=== PATIENT | female | born 1940 | race Caucasian/White ===

== ENCOUNTER → 2019-03-25 06:52 | Day surgery (SDC) | payer MEDICARE, BC ==
--- NOTE | 2019-03-23 18:03 | HP ---
HISTORY AND PHYSICAL: DATE OF ADMISSION/SURGERY: 03/25/19 DATE OF ENCOUNTER: 03/21/19 ATTENDING SURGEON: Dr. Heather Horton.* (DICTATED BY JUSTYN CESPEDES) PROCEDURE: Right knee arthroscopy, partial meniscectomy, possible chondroplasty , possible synovectomy, and plica excision. CHIEF COMPLAINT: Right knee pain. HISTORY OF PRESENT ILLNESS: Ms. Baer is a 79-year-old female with years of intermittent right knee pain. She reports that she intermittently has some mild pain in the right knee, but on 10/29/18 she had a fall and feels that she hyperextended or twisted her right knee. Since then she has had more acute, 6/ 10, sharp pain along the lateral joint line of her knee. Her pain is increased with feet bending, twisting, and pivoting. She has tried cortisone injection, physical therapy, antiinflammatories, and rest, without relief of pain. She feels locking and catching and feels like her knee sometimes gives out on her. At this point she has failed conservative treatment and would like to proceed with surgery. PAST MEDICAL HISTORY: Right hip fracture, hypertension, osteoarthritis, Crohn' s disease, and hypothyroidism. PAST SURGICAL HISTORY: Right hip replacement, tonsillectomy, appendectomy, hysterectomy, and cholecystectomy. MEDICATIONS: 1. Levothyroxine sodium 75 mcg 1 p.o. daily. 2. Premarin 0.625 mg 2 tablets daily on days 1 through 12 of new control pack. 3. Dicyclomine HCL 2.5 mg p.o. daily. 4. Lisinopril 10 mg 1 p.o. daily. 5. Multivitamin 1 p.o. daily. 6. Imodium A-D over the counter as needed. ALLERGIES: She has no known drug allergies. FAMILY HISTORY: Negative for DVT, PE, coronary artery disease, hypertension or cancer. SOCIAL HISTORY: She is a retired nurse executive. She lives at home with her spouse. She denies any tobacco or recreational drug use. She drinks about 7 alcoholic beverages per week. She is normally very active with aerobics, gardening, and walking. She is right hand dominant. REVIEW OF SYSTEMS: General: Negative for fevers, chills, night sweats, unexplained weight loss or gain. No known anesthesia problems. HEENT: Negative for headache, lightheadedness, syncopal episodes, visual changes. Integumentary: Negative for abrasions, lesions, open wounds. Cardiothoracic: Negative for hypertension, chest pain, palpitations, edema. Respiratory: Negative for shortness of breath with exertion, chronic cough, wheezing. GI: Positive for diarrhea, positive for Crohn's, negative for nausea, vomiting or GERD. : Negative for nocturia, urinary frequency, urgency, history of UTIs, kidney problems. Musculoskeletal: Positive for right knee pain. Negative for chronic or intermittent back pain or history of fractures. Neurologic: Positive for poor balance. Negative for paresthesias, numbness, history of seizure or stroke. Negative for anxiety or depression. Endocrine: Negative for diabetes. Positive for thyroid issues. Hematologic: Negative for easy bruising, anemia, bleeding disorders or history of DVT. ID: Negative for history of MRSA infection, hep C, and HIV. PHYSICAL EXAMINATION GENERAL: Well-developed, well-nourished 79-year-old female, in no acute distress, appropriate mood and affect. VITAL SIGNS: Height 65 inches, weight 136 pounds, pulse 88, BP 128/76. BMI 22.6. HEENT: Normocephalic and atraumatic. PERRLA. Extraocular movements intact. NECK: Supple. No palpable lymph nodes. Throat is clear. PULMONARY: Lungs are clear to auscultation bilaterally. No wheezes, rales or rhonchi. CARDIO: Regular rate and rhythm. S1 and S2 normal. No murmurs, rubs or gallops. No edema. ABDOMEN: Positive bowel wounds, soft, and nontender. MUSCULOSKELETAL: Right lower extremity: The patient's skin is intact. No palpable masses or lymph nodes. Moderate effusion about the knee with tenderness along the lateral joint line. Positive Apley's and Ajit's. A 10 -degree valgus deformity at the knee. She has 15 to 100 degrees of flexion because of pain and swelling. No varus or valgus instability. Distally no edema, varicosities or hyporeflexia. She has a 5/5 ankle dorsiflexion and plantar flexion strength. She has good sensation to light touch in all nerve distributions and a 2+ palpable PT pulse. NEUROLOGIC: A and O x3. Cranial nerves II through XII are intact. Sensation is intact to light touch. STUDIES: MRI from 02/04/19 shows a chondromalacia of patella and a lateral meniscus tear. IMPRESSION: Right knee lateral meniscus tear. PLAN: The patient is scheduled to undergo right knee arthroscopy with partial meniscectomy with Dr. Horton on 03/25/19. The procedure, as well as the risks and benefits were discussed with the patient by Dr. Horton and the patient agrees to proceed. She will return to the office in 10 to 14 days postop for followup and suture removal. A prescription for Percocet was e-scribed to the patient's pharmacy for postoperative pain management and I-STOP was performed today. JUSTYN CESPEDES [id number]/[facility] #: [id number] MTDMariah
[~2019-03-25 06:52] MED LIST: Acetaminophen TAB* 325 MG ONE; Acetaminophen TAB* 325 MG PO PRN; Buffered Lidocaine 1% SYRIN* 1 ML/SYRINGE INTRADERM ONE; Dexamethasone IV* 4 MG/ML 1 ML (4 MG) ONE; DiMENhydriNATE IV* 50 MG/ML VIAL IV PUSH PRN; DiMENhydriNATE IV* 50 MG/ML VIAL ONE; EPINEPHRINE 1 MG/ML 1 ML VIAL ONE; Famotidine IV* 10 MG/ML 2 ML (20 mg) IV ONE; Famotidine IV* 10 MG/ML 2 ML (20 mg) ONE; HYDROmorphone INJ1* 1 MG/ML SYRINGE ONE; Ketorolac INJ* 30 MG/ML 1 ML VIAL ONE; Lactated Ringers 1000 ML Bag* 1,000 ML IV SCH; Lidocaine 2% PF * 5 ML VIAL ONE; Midazolam* 1 MG/ML 5 ML VIAL (5 MG) ONE; Naloxone* 0.4 MG/ML 1 ML VIAL IV PRN; Ondansetron INJ* 2 MG/ML VIAL ONE; Propofol* 10 MG/ML 20 ML BTL ONE; ROPIVACAINE 5 MG/ML 30 ML BTL (0.5%) ONE; ceFAZolin 2 GM in NS PREMIX(*) 2 GM/100 ML BAG IVPB ONE; fentaNYL* 50 MCG/ML 2 ML VIAL (100 MCG VIAL) ONE; methylPREDNISolone ACETATE 80* 80 MG/ML 1 ML VIAL ONE; oxyCODONE TAB* 5 MG TAB PO PRN
[2019-03-25] MEDS: HYDROmorphone INJ1* 1 MG/ML SYRINGE IV PRN ×2 (10:21→10:34)
[2019-03-25 11:32] VITALS: BP 115/59
--- NOTE | 2019-03-26 00:01 | OP ---
OPERATIVE REPORT: DATE OF OPERATION: 03/25/19 DATE OF : 44 SURGEON: Heather Horton MD. MACHINE GUIDE BASE WINDER: JUSTYN Jackson. Ms. Nair did help throughout the procedure with preparation of the leg, wound retraction, manipulation of the knee, and wound closure. ANESTHESIOLOGIST: Dr. Malagon. ANESTHESIA: General. PRE-OP DIAGNOSIS: Right knee lateral meniscal tear, moderate osteoarthritis. POST-OP DIAGNOSIS: Right knee lateral meniscal tear, moderate osteoarthritis. OPERATIVE PROCEDURE: Right knee arthroscopy with partial lateral meniscectomy and patellofemoral chondroplasty. ESTIMATED BLOOD LOSS: Less than 25 cc. COMPLICATIONS: None. SPECIMENS: None. BRIEF HISTORY/INDICATIONS: Ms. Baer is a 79-year-old female who had a fall in October. Since that time, she has had mechanical symptoms along the lateral joint line. She failed conservative treatment. MRI confirmed a lateral meniscal tear. The patient accepted that she had arthritic changes in the knee joint, but wished to proceed with arthroscopy and partial lateral meniscectomy for the mechanical symptoms. Informed consent was obtained from the patient. She understood the risks of surgery included but were not limited to bleeding, infection, damage to nearby structures, continued pain, need for further surgery, retear of the meniscus, progression of arthritis, stroke, heart attack, blood clot and ; she wished to proceed. INTRAOPERATIVE FINDINGS: Intraoperatively, the patient had multiple radial type tears with displaced fragments of the lateral meniscus. This is mainly in the white-red zone. She had grade 3 and 4 Outerbridge cartilage changes in the lateral and patellofemoral compartment with some frayed flap cartilage along the medial and lateral patellar facet. DESCRIPTION OF PROCEDURE: Ms. Baer was identified in the preanesthesia unit. Her right lower extremity was marked as the correct operative side. Informed consent was signed and placed in the chart. The patient was taken to the operating room and placed under anesthesia without difficulty. Right lower extremity was prepped and draped in the usual sterile fashion. Preop time-out was made to correctly identify the patient, side, and site. Appropriate perioperative antibiotics were given within 1 hour of incision. A 0.5 cm standard anterolateral portal incision was made with a #10 blade and carried down through the capsule. Trocar was introduced. As soon as the light and water sources were turned on, there was immediate visualization of the knee joint. A tour of the knee joint was performed. Suprapatellar pouch had no obvious abnormality. Patellofemoral compartment had some frayed and flap cartilage. There were grades 3 and 4 Outerbridge cartilage changes in the patellofemoral compartment. Medial gutter showed no loose body or plica. Medial compartment showed minimal degenerative changes. The ACL and PCL appeared to be intact. The knee was placed in a [id number] position. Immediately, there were multiple meniscal tears that were radial type along the anterior, medial, and posterior portion of the lateral meniscus with displacement into the joint space. There were some grade 3 and 4 Outerbridge cartilage changes along the lateral femoral condyle. Lateral gutter showed no obvious abnormality or loose body. Under direct visualization, a medial portal incision was made. Probe was introduced and a second tour of the knee joint was performed. There were no additional findings or abnormalities noted. Shaver and radiofrequency ablation wand were used to perform patellofemoral chondroplasty. Any fissure, cartilage or cartilage flaps were carefully smoothed and excised. Straight biter and shaver were then used to perform partial lateral meniscectomy. The radial tears were all excised. These were mainly in the white -red zone. Further probing of the lateral meniscus showed no additional tears or flipped fragments. The knee was copiously irrigated with sterile saline. All instruments were removed. The incisions were closed with 3-0 nylon suture. Intraarticular injection of 80 mg Depo-Medrol and 6 cc of 0.5% Marcaine was placed in the knee joint. The patient's incisions were covered with Xeroform, 4x4s, Webril. Nadeem wrap and cold pack were placed over this. The patient's anesthesia was reversed without difficulty. She was taken to the PACU in stable condition. Intended weightbearing will be weightbearing as tolerated. Intended DVT prophylaxis will be aspirin. [id number]/[facility] #: [id number] [facility] CENTERMariah
== END | disposition home or self-care (01) ==
LOC: OR 06:52
PROVIDERS: ATTEND Orthopaedic Surgery Adult Reconstructive Orthopaedic Surgery
DX: S83.281A Other tear of lateral meniscus, current injury, right knee, initial encounter (principal); M17.11 Unilateral primary osteoarthritis, right knee; I10 Essential (primary) hypertension; E03.9 Hypothyroidism, unspecified; M19.90 Unspecified osteoarthritis, unspecified site; Z87.891 Personal history of nicotine dependence; K50.90 Crohn's disease, unspecified, without complications; W19.XXXA Unspecified fall, initial encounter; Y92.9 Unspecified place or not applicable
CPT/HCPCS: A9270-GY; J0690; J1040; J1100; J1170; J1240; J1885; J2250; J2405; J2704; J2795; J3010